=== PATIENT | male | born 1995 | race Two or more races ===

== ENCOUNTER 2024-08-15 15:03 | Emergency (ER) | payer BC, SELFPAY ==
[2024-08-15 15:34] VITALS: BP 162/91; PULSE 110; RESP 18; TEMP 36.8; O2SAT 96
--- NOTE | 2024-08-15 15:45 | EDNOTE_ITS ---
Upper Extremity Injury RME/HPI General Chief Complaint: Extremity Injury, Upper Stated Complaint: LEFT SHOULDER DISLOCATED X 15 MIN Time Seen by Provider: 08/15/24 15:25 Source: patient Arrival date/time: 08/15/24 15:03 This is a 28-year-old male who presented to the emergency department with complaints of possible left shoulder dislocation for approximately 15 minutes. Patient does report recurrent shoulder dislocation mainly on his right shoulder. Has been seen and treated by chiropractors however has not seen an orthopedic. Patient reports he was applying his sling for his right shoulder when his left shoulder dislocated prompting his ED visit today. He reports he is sometimes able to reduce his shoulders himself however this time he was unable, he is right sided dominant. Mode of arrival: ambulatory Limitations: no limitations Related Data Previous Rx's ?Medication ?Instructions ?Recorded erythromycin 5 mg/gram (0.5 %) eye 1 appl Left eye QID ##1 09/13/16 ointment alprazolam 0.25 mg tablet (Xanax) 0.25 mg PO BID PRN anxiety #20 tabs 02/13/23 Allergies Allergy/AdvReac Type Severity Reaction Status Date / Time No Known Allergies AdvReac Unknown Uncoded 08/15/24 15:04 Review of Systems Review of Systems Systems Reviewed: All systems reviewed, normal except as documented Narrative Review of Systems: Gen: No fever, no chills, no weight loss EYES: No discharge, no visual changes, no pain HEENT: No ear pain, no congestion, no sore throat PULM: No shortness of breath, no cough, no congestion CV: No chest pain, no dyspnea on exertion, no palpitations GI: No nausea, no vomiting, no diarrhea, no pain, no constipation : No frequency, no urgency,? no dysuria Musc/skel: left shoulder joint pain, no back pain Skin: No rash? ED Exam General Limitations: Present no limitations General appearance: Present alert and in no apparent distress Head Head exam: Present atraumatic Eye Eye exam: Present normal appearance, PERRL and EOMI ENT ENT exam: Present normal exam, normal oropharynx and mucous membranes moist Neck Neck exam: Present normal inspection, full ROM and trachea midline Chest Chest inspection: Present normal inspection and symmetric chest wall rise Respiratory Respiratory exam: Present normal lung sounds bilaterally Cardiovascular Cardiovascular exam: Present regular rate, normal rhythm and normal heart sounds Abdominal Exam Abdominal exam: Present soft and normal bowel sounds Extremities Exam Extremities exam: Present full ROM Expanded Upper Extremity Exam Shoulder exam: Present dislocation; Absent tenderness, swelling, crepitus or erythema Back Exam Back exam: Present normal inspection and full ROM Neurological Exam Neurological exam: Present alert, oriented X3 and CN II-XII intact Psychiatric Psychiatric exam: Present normal affect and normal mood Skin Skin exam: Present warm, dry, intact and normal color Course Quality Measures none Vital Signs Vital signs: Vital Signs Temperature 98.2 F 08/15/24 15:34 Pulse Rate 110 H 08/15/24 15:34 Respiratory Rate 18 08/15/24 15:34 Blood Pressure 162/91 H 08/15/24 15:34 Pulse Oximetry (%) 96 08/15/24 15:34 Oxygen Delivery Method Room Air 08/15/24 15:34 Extremity Injury MDM Narrative MDM Narrative:: Patient does not currently demonstrate complications of dislocation such as compartment syndrome, arterial injury or nerve injury. The dislocation has been satisfactorily reduced and immobilized manually by attending Dr. Goldsmith. Pt tolarated well. Rx:?sling immobilization 1 week, with gentle ROM to follow Discharge with strict return precautions and instructions to follow up with primary MD within 48 hours for further evaluation including referral to an orthopedist. Patient data External records reviewed:: [facility] previous records Clinical information provided by:: patient Social determinants that could affect healthcare access:: none Patient has the following chronic illnesses:: none How is presenting disease/condition affected by chronic disease/condition?: no chronic disease Evaluation data The following diagnostics were reviewed and interpreted by me:: other (specify) Lab and/or radiology exams considered but not ordered:: Considered x-ray however shoulder was manually reduced without complications or pain. No x-ray for today's visit Interpretation Summary: Not applicable Medications / Prescriptions Medications or Prescriptions considered but not ordered:: N/A Medication administrations:: N/A Consultations Consultation(s) initiated? (list below): No Diagnosis Upper Extremity Injury Differential Diagnosis: dislocation of shoulder Most likely diagnosis given after review of the tests above:: Left shoulder dislocation with reduction Admission Indicated Admission indicated?: not indicated Admission Request Was there a request for admission?: No Disposition Plan Disposition Plan: Discharge Discharge Attestation Discharge Attestation: The patient and all family members were given an opportunity to ask questions and understood the discharge instructions. Discharge instructions specifically effects, indications for sooner follow up or return to the emergency department, and the expected course of current diagnosis. Patient condition: Stable Discharge Plan Plan Patient Disposition: HOME (Self Care) Prescriptions/Referrals Prescriptions/Med Rec: No Action erythromycin 1 GM ointment 1 appl Left eye QID Qty: 1 0RF Rx Instructions: use for 7 days alprazolam [Xanax] 0.25 mg tablet 0.25 mg PO BID PRN (Reason: anxiety) Qty: 20 0RF Problem List Clinical Impression: Closed dislocation of left shoulder Patient/Caregiver Discharge Instructions Discharge Activity: activity as tolerated Education Materials: ED Dislocation: Shoulder (Reduced) Additional Instructions: - Follow-up with the orthopedic as directed. -Keep sling on at least for 24 to 48 hours Return to the emergency department is any worsening symptoms change in condition. Print Language: Tanzanian Stand Alone Forms: Asiya Award Info., Patient Portal Info Letter PA/VIPIN Supervising Physician TRENT/VIPIN Supervising Physician: Dr Goldsmith
[2024-08-15 15:51] VITALS: BP 150/91; PULSE 111; RESP 18
== END 2024-08-15 15:57 | disposition home or self-care (01) ==
LOC: SERX 15:58
PROVIDERS: Emergency Provider Emergency Medicine
DX: S43.005A Unspecified dislocation of left shoulder joint, initial encounter (principal); X58.XXXA Exposure to other specified factors, initial encounter
CPT/HCPCS: 99281